=== PATIENT | female | born 1985 | race Caucasian/White ===

== ENCOUNTER 2016-06-10 21:17 | Emergency (ER) | payer OTHER ==
[~2016-06-10] VITALS: Ht 162.6 cm; Wt 74.4 kg
[~2016-06-10 21:17] MED LIST: ATIVAN0.5 MG PO; NUVARING VAGIN1 EACH VG; REQUIP1 M1 PO; TYLENOL WITH C1 EACH PO; VENLAFAXINE HCL75 M1 PO; ZOFRAN4 M2 PO
[2016-06-10 21:36] VITALS: BP 115/81
--- NOTE | 2016-06-10 22:20 | ED NECK/BACK PAIN COMPLAINT ---
History of Present Illness General Chief Complaint: General Adult Stated Complaint: " I CAN'T MOVE MY NECK SINCE SATURDAY" Source: patient Exam Limitations: no limitations Vital Signs & Intake/Output Vital Signs & Intake/Output Vital Signs Date Time Temp Pulse Resp B/P Pulse O2 O2 Flow FiO2 Ox Delivery Rate 06/106 98.0 86 18 115/81 100 Room Air ED Intake and Output 06/11 0000 06/10 1200 Intake Total 0 Output Total Balance 0 Intake, Oral 0 Patient 164 lb Weight Allergies Coded Allergies: amoxapine (Intermediate, RASH 06/14/15) Reconcile Medications Cyclobenzaprine HCl 10 MG TABLET 1 TAB PO TID PRN MUSCLE SPASM Etonogestrel/Ethinyl Estradiol (Nuvaring Vaginal Ring) 1 EACH VAG.RING 1 EACH VG Q30D BC (Reported) use for 3 weeks, skip for 1 week Ibuprofen 800 MG TABLET 1 TAB PO TID PRN pain Ondansetron HCl (Zofran) 4 MG TABLET 1 TAB PO Q6-8P PRN NAUSEA Ropinirole HCl (Requip) 1 MG TABLET 1 TAB PO QPM RESTLESS LEGS (Reported) Tylenol With Codeine (Tylenol With Codeine #3 Tablet) 1 EACH TABLET 1 TAB PO TID PRN PAIN Venlafaxine HCl (Venlafaxine HCl ER) 75 MG CAP.ER.24H 1 CAP PO DAILY MENTAL HEALTH (Reported) Triage Note: PT TO ED FOR THREE DAYS OF LATERAL LEFT SIDE NECK PAIN AND PAINFUL SWALLOWING ON L SIDE ONLY. PT DENIES SORE THROAT - ONLY PAIN IS WHEN ACTIVELY SWALLOWING. TRIED FLEXERIL AND NAPROXEN AT HOME WITH NO RELIEF. PREVIOUS HX OF "SWOLLEN LYMPH NODES IN NECK, FEELS SIMILAR BUT THIS IS MUCH MORE SEVERE" Triage Nurses Notes Reviewed? yes Onset: Gradual Duration: day(s):, waxing and waning Timing: recent history Quality/Severity: moderate Location: left side of neck Radiation: none Context: see below Method of Injury: unknown Loss of Consciousness: no loss of consciousness Modifying Factors: movement, pain medication Associated Symptoms: muscle spasm : No Patient currently breastfeeds: No HPI: 30 yo woman presents with left sided neck and left upper shoulder pain x 3 days, which began after her spinning class at the gym. She notes that she took an aleve and a flexeril 5mg tab without significant effect. She then took a T#3 with moderate effect. She notes that it hurts to palpation and when she moves her neck. She notes no trauma. She is otherwise well. Past History Travel History Traveled to [place] past 21 day No Medical History Any Pertinent Medical History? 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 No Review of Systems Review of Systems Constitutional: Reports: no symptoms. Eyes: Reports: no symptoms. Ears, Nose, Throat, Mouth: Reports: no symptoms. Respiratory: Reports: no symptoms. Cardiovascular: Reports: no symptoms. Gastrointestinal/Abdominal: Reports: no symptoms. Musculoskeletal: Reports: no symptoms. Skin: Reports: no symptoms. Neurological/Psychological: Reports: no symptoms. All Other Systems: Reviewed and Negative Physical Exam Physical Exam General Appearance: well developed/nourished, mild distress Head: atraumatic Eyes: Bilateral: PERRL, EOMI. Ears, Nose, Throat, Mouth: hearing grossly normal Neck: left trapezius and sternoclenomastoid muscle spasm. Respiratory: normal breath sounds Cardiovascular: regular rate/rhythm Gastrointestinal: soft, non-tender Back: normal inspection Extremities: normal range of motion Neurologic/Psych: awake, alert, oriented x 3, normal mood/affect Skin: intact, normal color, warm/dry Progress Differential Diagnosis: muscle spasm vs other vs radiculopathy Plan of Care: Current Medications Sig/Jorge Start time Last Medication Dose Stop Time Status Admin Cyclobenzaprine HCl 10 MG ONCE ONE 06/10 2229 UNVr (Flexeril 10MG Tab) 06/10 2230 Ketorolac 60 MG ONCE ONE 06/10 2229 UNVr Tromethamine 06/10 2230 (Toradol) Departure Departure Disposition: HOME OR SELF CARE Condition: Stable Clinical Impression Primary Impression: Muscle spasm Referrals: DRISS COON,ISAAC Preciado (PCP/Family) Departure Forms: Customer Survey General Discharge Information Prescriptions: Current Visit Scripts Ibuprofen 1 TAB PO TID PRN pain #60 TAB Ref 1 Cyclobenzaprine HCl 1 TAB PO TID PRN MUSCLE SPASM #30 TAB Ref 1 Comments pt given toradol and flexeril... pt to follow up with pmd.
[2016-06-10] MEDS ORDERED: IBUPROFEN800 M1 PO (22:21)
[2016-06-10] MEDS ORDERED: CYCLOBENZAPRINE10 M1 PO (22:21)
== END 2016-06-10 22:33 ==
LOC: ERH 21:17
DX: M62.838 Other muscle spasm (principal)
CPT/HCPCS: 96372; J1885

== ENCOUNTER 2017-08-28 09:16 | Emergency (ER) | payer OTHER ==
[~2017-08-28] VITALS: Ht 162.6 cm; Wt 82.1 kg
[~2017-08-28 09:16] MED LIST changes: +CYCLOBENZAPRINE10 M1 PO; +IBUPROFEN800 M1 PO; +LEVOTHYROXINE25 MCG PO
[2017-08-28] MEDS ORDERED: FERRALET 90 TA1 EACH PO (09:47)
[2017-08-28 10:55] LABS: ABSOLUTE BASOPHIL COUNT 0.1 /CUMM (0.0-0.2); ABSOLUTE EOSINOPHIL COUNT 0.1 /CUMM (0.0-0.7); ABSOLUTE GRANULOCYTE CT 8.8 /CUMM (1.4-6.5); ABSOLUTE LYMPH COUNT 1.9 /CUMM (1.2-3.4); ABSOLUTE MONOCYTE COUNT 0.6 /CUMM (0.10-0.60); BASOPHIL % 0.9 % (0.0-2.0); EOSINOPHIL % 1.1 % (0-5); GRANULOCYTE % 76.3 % (42.2-75.2); MEAN CORPUSCULAR HGB 29.1 PG (27.0-31.0); MEAN CORPUSCULAR HGB CONC 34.2 G/DL (33.0-37.0); MEAN PLATELET VOLUME 8.5 FL (7.4-10.4); PLATELET COUNT 365 /CUMM (130-400); RBC DISTRIBUTION WIDTH 13.6 % (11.5-14.5); RED BLOOD CELL CT 4.48 /CUMM (4.20-5.40); WHITE BLOOD CELL COUNT 11.5 /CUMM (4.8-10.8)
--- NOTE | 2017-08-28 10:59 | ULTRASOUND REPORT ---
EXAMINATION: US TRIPLEX OF LOWER EXTREMITIES, BILATERAL CLINICAL INFORMATION: Shortness of breath and . COMPARISON: None TECHNIQUE: Color-flow triplex imaging with spectral analysis and compression Doppler were performed on the lower extremities. FINDINGS: Respiratory variation, normal compression and augmented flow are noted throughout the lower extremities. The visualized common femoral vein, superficial femoral vein, profunda femoral vein, popliteal vein and midcalf peroneal and posterior tibial venous segments show no evidence of deep venous thrombosis. There is no Celis's cyst. IMPRESSION: No evidence of deep venous thrombosis involving the bilateral lower extremities.
--- NOTE | 2017-08-28 11:15 | ED DYSPNEA/ASTHMA COMPLAINT ---
History of Present Illness General Chief Complaint: General Adult Stated Complaint: SIB DR MAN S/P CP SOB X9 WEEKS Source: patient Exam Limitations: no limitations Vital Signs & Intake/Output Vital Signs & Intake/Output Vital Signs Date Time Temp Pulse Resp B/P B/P Pulse O2 O2 Flow FiO2 Mean Ox Delivery Rate 08/28 1152 62 110/56 08/28 0929 98.2 74 18 113/74 99 Room Air Allergies Coded Allergies: amoxicillin (Intermediate, RASH 05/01/17) Reconcile Medications Iron Carb,Gl/FA/B12/C/Docusate (Ferralet 90 Tablet) 90 MG-1 MG-12 MCG-120 MG-50 MG TABLET 1 TAB PO DAILY (Reported) Levothyroxine Sodium 25 MCG TABLET 1 TAB PO DAILY AC THYROID (Reported) Triage Note: C/O SOB (INTERMITTANT) X 1 WEEK, WORSE TODAY WITH CHEST PRESSURE. PT IS 9 WEEKS A, SENT BY DR. HILL FOR EVALUATION. Triage Nurses Notes Reviewed? yes Onset: Abrupt Duration: day(s): Timing: recent history Severity: mild, moderate : Yes Patient currently breastfeeds: No HPI: 31-year-old female approximately 9 weeks comes into the emergency room for shortness of breath. She reports the symptoms been going on for the past 4-5 days intermittently. She feels that she has to gasp with taking a deep breath. Worse with exertion. Some chest heaviness and tightness today. She was sent in by her [facility] doctor for further evaluation. She denies any leg swelling. She denies any hemoptysis. Denies any fever chills. Denies any vomiting or cough. Nothing seems to make the symptoms better. She does report that she's had some stressors with her family recently which has caused some increased anxiety and this could be attributing to her symptoms as well. (Elvin Nava) Past History Travel History Traveled to [place] past 21 day No Medical History Any Pertinent Medical History? see below for history Neurological: NONE EENT: NONE Cardiovascular: NONE Respiratory: NONE Gastrointestinal: irritable bowel syndrome Hepatic: NONE Renal: NONE Musculoskeletal: fibromyalgia Psychiatric: depression Endocrine: hypothyroidism Blood Disorders: NONE Cancer(s): NONE DISABILITY AIDE/Reproductive: endometriosis Other Medical Hx: gluten intolerance Surgical History Surgical History: non-contributory Psychosocial History Who do you live with Patient/Self What is your primary language Trinidadian Tobacco Use: Quit >30 days ago ETOH Use: denies use Family History Hx Contributory? No (Elvin Nava) Review of Systems Review of Systems Constitutional: Reports: no symptoms. EENTM: Reports: no symptoms. Respiratory: Reports: see HPI. Cardiovascular: Reports: no symptoms. GI: Reports: no symptoms. Genitourinary: Reports: no symptoms. Musculoskeletal: Reports: no symptoms. Skin: Reports: no symptoms. Neurological/Psychological: Reports: no symptoms. Hematologic/Endocrine: Reports: no symptoms. Immunologic/Allergic: Reports: no symptoms. All Other Systems: Reviewed and Negative (Elvin Nava) Physical Exam Physical Exam General Appearance: well developed/nourished, no apparent distress, alert, awake Head: atraumatic, normal appearance Eyes: Bilateral: normal appearance. Ears, Nose, Throat: normal ENT inspection, hearing grossly normal Neck: normal inspection Respiratory: normal breath sounds, no respiratory distress Cardiovascular: regular rate/rhythm Extremities: normal inspection Neurologic/Psych: awake, alert, oriented x 3 Skin: intact, normal color Core Measures ACS in differential dx? No CVA/TIA Diagnosis No Sepsis Present: No Sepsis Focused Exam Completed? No All Positive = PERC Ruled Out: Positive: age < 50 years, heart rate < 100 bpm, O2 sat > 94%, no hemoptysis, no hormone use, no prior DVT or PE, no unilateral leg swellin, no surgery/trauma w/ in 4w. (Elvin Nava) Progress Differential Diagnosis: asthma, AMI, bronchitis, costochondritis, CHF, COPD, musculoskeletal pain, pericarditis, pulmonary embolism, pneumonia, pneumothorax, unstable angina Plan of Care: Orders Procedure Date/time Status Add-on Test (ER Only) 08/28 1114 Active D-DIMER 08/28 1045 Complete THYROID STIMULATING HORMONE 08/28 0943 Complete TROPONIN LEVEL 08/28 0943 Complete COMPREHENSIVE METABOLIC PANEL 08/28 0943 Complete CBC WITHOUT DIFFERENTIAL 08/28 0943 Complete EKG 08/28 0918 Active Laboratory Tests 08/28/17 1045: Anion Gap 14, Estimated GFR > 60, BUN/Creatinine Ratio 16.0, Glucose 80, Calcium 10.1, Total Bilirubin 0.4, AST 18, ALT 31, Alkaline Phosphatase 27, Troponin I < 0.01, Total Protein 7.6, Albumin 4.3, Globulin 3.3, Albumin/Globulin Ratio 1.3, TSH 1.200, D-Dimer High Sensitivty < 200, CBC w Diff NO MAN DIFF REQ, RBC 4.48, MCV 85.0, MCH 29.1, MCHC 34.2, RDW 13.6, MPV 8.5, Gran % 76.3 H, Lymphocytes % 16.3 L, Monocytes % 5.4, Eosinophils % 1.1, Basophils % 0.9, Absolute Granulocytes 8.8 H, Absolute Lymphocytes 1.9, Absolute Monocytes 0.6, Absolute Eosinophils 0.1, Absolute Basophils 0.1 Diagnostic Imaging: Viewed by Me: Ultrasound. Discussed w/RAD: Ultrasound. Radiology Impression: PATIENT: HANANE NORMAN PRESENT AGE: 31 PATIENT ACCOUNT NO: [id number] : 87 LOCATION: [facility] ORDERING PHYSICIAN: Elvin SIBLEY SERVICE DATE: 08/28/17 EXAM TYPE: US - US -EXT BILAT VENOUS DOPPLER EXAMINATION: US TRIPLEX OF LOWER EXTREMITIES, BILATERAL CLINICAL INFORMATION: Shortness of breath and . COMPARISON: None TECHNIQUE: Color-flow triplex imaging with spectral analysis and compression Doppler were performed on the lower extremities. FINDINGS: Respiratory variation, normal compression and augmented flow are noted throughout the lower extremities. The visualized common femoral vein, superficial femoral vein, profunda femoral vein, popliteal vein and midcalf peroneal and posterior tibial venous segments show no evidence of deep venous thrombosis. There is no Celis's cyst. IMPRESSION: No evidence of deep venous thrombosis involving the bilateral lower extremities. DICTATED BY: Hans Russell MD DATE/TIME DICTATED:08/28/171052 SERVICE RESTORER EMERGENCY:[facility] DATE/ TIME TRANSCRIBED:08/28/171052 CONFIDENTIAL, DO NOT COPY WITHOUT APPROPRIATE AUTHORIZATION. <Electronically signed in Other Vendor System> SIGNED BY: Hans Russell MD 08/28/171058 Initial ED EKG: normal sinus rhythm, rate (79), borderline t wave abnormalities Comments: 08/28/2017 12:04:48 PM Patient clinically looks well. Patient is no apparent distress. Patient is nontoxic-appearing. Lungs clear to auscultation. Negative d-dimer. No suspicion for pulmonary embolism. No clinical signs of pneumonia. Patient will follow-up with her primary care doctor. Spoke with her [facility] doctor Dr. Man is in agreement plan of care. Case discussed with dr mckinney. (Elvin Nava) Departure Departure Disposition: HOME OR SELF CARE Condition: Stable Clinical Impression Primary Impression: Dyspnea Referrals: Afia COON,Margarito Lewis (PCP/Family) Additional Instructions: Follow-up with your [facility] doctor. Return if any concerns worsening symptoms. Please go over all results of today's visit with your primary care doctor. Contact your primary care doctor to let them know you were here in the emergency room. There may be nonspecific findings which may not be related to your visit today here in the emergency room but may require further evaluation and chronic monitoring by your primary care doctor. If you had a laceration today the chance of foreign body always remains. You should follow-up with your primary care doctor for recheck in 3-5 days for a wound check. If you had an x-ray done there is a chance that a fracture could have been missed on initial read and you should follow-up with your primary care doctor for repeat x-rays if symptoms persist. If your blood pressure was elevated here in the emergency room please have rechecked by [facility] primary care doctor within the next 48. If you were prescribed a narcotic here in the emergency room or any type of controlled substances you're not allowed to drive while taking this medication or operate any type of heavy machinery. Narcotics can make you feel lightheaded dizziness nausea and can cause constipation. You may need to picker/puller a stool softener. Thank you for choosing emergency room. Please return to the emergency room immediately if you have any other concerns worsening of symptoms. Departure Forms: Customer Survey General Discharge Information (Elvin Nava) PA/PRIMARY SPECIAL EDUCATOR Co-Sign Statement Statement: ED Attending supervision documentation- [] I saw and evaluated the patient. I have also reviewed all the pertinent lab results and diagnostic results. I agree with the findings and the plan of care as documented in the PA's/PRIMARY SPECIAL EDUCATOR's documentation. [x] I have reviewed the ED Record and agree with the PA's/PRIMARY SPECIAL EDUCATOR's documentation. [] Additions or exceptions (if any) to the PAs/PRIMARY SPECIAL EDUCATOR's note and plan are summarized below: [] (Owen Mckinney DO) Critical Care Note Critical Care Note Critical Care Time: non-applicable (Juvencio SIBLEY,Elvin)
[2017-08-28 11:52] VITALS: BP 110/56
== END 2017-08-28 11:53 ==
LOC: ERH 09:16
PROVIDERS: Physician Assistant Medical
DX: O26.91 Pregnancy related conditions, unspecified, first trimester (principal); R06.00 Dyspnea, unspecified; Z3A.09 9 weeks gestation of pregnancy
CPT/HCPCS: 93005; 93010; 93970